=== PATIENT | female | born 1935 | race Caucasian/White ===

== ENCOUNTER 2018-12-15 23:16 | Emergency (ER) | payer MEDICARE, MEDICAID ==
--- NOTE | 2018-12-16 00:04 | EDM.PDOC ---
ED HPI GENERAL MEDICAL PROBLEM - General Chief Complaint: Abdominal Pain Stated Complaint: LOWER ABDOMEN PAIN [id number] Time Seen by Provider: 12/15/18 23:25 - History of Present Illness INITIAL COMMENTS - FREE TEXT/NARRATIVE: ED with friend, woke around 10pm with burning pain to RLQ. Improving now. No fever. No nausea or vomiting. last BM this am. Hx remote appendectomy and lola. No known hx of diverticulitis. Friend reports minimal encounter with health care. Patient just re establishing care. Follow up appointment scheduled for Friday. Right Lower Abdomen Pain Score (Numeric/FACES): 4 - Related Data Allergies Allergy/AdvReac Type Severity Reaction Status Date / Time No Known Allergies Allergy Verified 12/15/18 23:25 Home Meds: Home Meds Sertraline HCl 1.25 ml PO DAILY 12/15/18 [History] Past Medical History - Past Surgical History GI Surgical History: Reports: Appendectomy, Cholecystectomy Social & Family History - Tobacco Use Smoking Status *Q: Never Smoker Second Hand Smoke Exposure: No - Recreational Drug Use Recreational Drug Use: No ED ROS GENERAL - Review of Systems Review Of Systems: See Below Constitutional: Reports: Decreased Appetite. Denies: Fever, Chills, Malaise HEENT: Reports: No Symptoms, Glasses Respiratory: Reports: No Symptoms Cardiovascular: Reports: No Symptoms Endocrine: Reports: No Symptoms GI/Abdominal: Reports: Abdominal Pain (RLQ burning at onset resolved oin ED. ) : Reports: No Symptoms Musculoskeletal: Reports: No Symptoms Skin: Reports: Wound (abrasion right abdomen notes when whe is stressed rubs area at night. ) Neurological: Reports: No Symptoms Psychiatric: Reports: Anxiety (Reports stress from spouses failing health, confusion, having to live alone ) ED EXAM, GI/ABD - Physical Exam Exam: See Below Exam Limited By: No Limitations General Appearance: Alert, No Apparent Distress, Anxious Eyes: Bilateral: EOMI Ears: Normal External Exam Nose: Normal Inspection Throat/Mouth: Normal Inspection Head: Atraumatic, Normocephalic Neck: Normal Inspection Respiratory/Chest: No Respiratory Distress, Lungs Clear, Normal Breath Sounds Cardiovascular: Normal Peripheral Pulses, Regular Rate, Rhythm GI/Abdominal Exam: Normal Bowel Sounds, Soft, No Mass. No: Distended, Guarding , Rebound Back Exam: Normal Inspection Neurological: Alert, Oriented, Normal Cognition Psychiatric: Anxious Skin Exam: Warm, Dry, Wound/Incision (3x1cm abrasion right mid lower abdomen no erythema or warmth. ) Course - Vital Signs Last Recorded V/S: Last Vital Signs Temp 97.4 F 12/15/18 23:20 Pulse 76 12/15/18 23:20 Resp 18 12/15/18 23:20 BP 166/76 H 12/15/18 23:20 Pulse Ox 93 L 12/15/18 23:20 - Orders/Labs/Meds Orders: Active Orders 24 hr Category Date Time Status Abdomen 1V Upright [CR] Urgent Exams 12/16/18 00:01 Taken UA W/MICROSCOPIC [URIN] Stat Lab 12/16/18 00:34 Results Labs: Laboratory Tests 12/16/18 12/16/18 12/16/18 Range/Units 00:16 00:16 00:34 WBC 7.7 (5.0-10.0) 10^3/uL RBC 4.67 (4.2-5.4) 10^6/uL Hgb 14.2 (12.0-16.0) g/dL Hct 43.3 (37.0-47.0) % MCV 92.7 (80-100) fL MCH 30.4 (27.0-34.0) pg MCHC 32.8 L (33.0-35.0) g/dL Plt Count 193 (150-450) 10^3/uL Neut % (Auto) 55.6 (42.2-75.2) % Lymph % (Auto) 27.7 (20.5-50.1) % [place] % (Auto) 12.2 H (2-8) % Eos % (Auto) 4.0 H (1.0-3.0) % Baso % (Auto) 0.5 (0.0-1.0) % Sodium 131 L (135-145) mmol/L Potassium 4.1 (3.6-5.0) mmol/L Chloride 95 L (101-111) mmol/L Carbon Dioxide 25.0 (21.0-31.0) mmol/L Anion Gap 15.1 BUN 19 H (7-18) mg/dL Creatinine 0.6 (0.6-1.3) mg/dL Est Cr Clr Drug Dosing 58.49 mL/min Estimated GFR (MDRD) > 60 BUN/Creatinine Ratio 31.66 Glucose 99 (74-105) mg/dL Calcium 9.3 (8.4-10.2) mg/dl Total Bilirubin 0.7 (0.2-1.0) mg/dL AST 20 (10-42) IU/L ALT 13 (10-60) IU/L Alkaline Phosphatase 60 (42-121) IU/L Total Protein 7.1 (6.7-8.2) g/dl Albumin 3.6 (3.2-5.5) g/dl Globulin 3.5 Albumin/Globulin Ratio 1.03 Amylase 57 (28-100) U/L Lipase 42 (22-51) U/L Urine Color Yellow (YELLOW) Urine Appearance Slightly cloudy (CLEAR) Urine pH 7.0 (5.0-9.0) Ur Specific [place] 1.015 (1.005-1.030) Urine Protein Negative (NEGATIVE) Urine Glucose (UA) Negative (NEGATIVE) Urine Ketones Negative (NEGATIVE) Urine Occult Blood Trace-intact H (NEGATIVE) Urine Nitrite Negative (NEGATIVE) Urine Bilirubin Negative (NEGATIVE) Urine Urobilinogen 0.2 (0.2-1.0) mg/dL Ur Leukocyte Esterase Trace H (NEGATIVE) - Radiology Interpretation Free Text/Narrative:: Name: RANDY MERCER Age: 83Years F Date: 12/16/2018 SSN: -- : [id number] Study: XR ABDOMEN 1 VIEW Requesting Physician: MONICA ARREAGA Images: 1 Addl Studies: Provided Clinical History: Contrast: Contrast Medium: Contrast Amount: Contrast Method: CONFIDENTIALITY STATEMENT This report is intended only for use by the referring physician, and only in accordance with law. If you received this in error, call [phone]. Page 1 of 1 EXAM: XR Abdomen, 1 View EXAM DATE/TIME: 12/16/2018 12:07 AM CLINICAL HISTORY: 83 years old, female; Pain; Abdominal pain; Acute; Patient HX: Abd pain TECHNIQUE: Frontal supine view of the abdomen/pelvis. COMPARISON: No relevant prior studies available. FINDINGS: Lower thorax: Pulmonary fibrotic changes in the lung bases. Gastrointestinal tract: Unremarkable. No bowel dilation. Organs: Unremarkable. Bones/joints: Unremarkable for age. IMPRESSION: No acute findings. Thank you for allowing us to participate in the care of your patient. Dictated and Authenticated by: Anup Gamble MD 12/16/2018 12:37 AM Central Time ([place] & [place]) Departure - Departure Time of Disposition: 00:47 Disposition: Home, Self-Care 01 Condition: Good Clinical Impression: Abdominal pain Qualifiers: Abdominal location: right lower quadrant Qualified Code(s): R10.31 - Right lower quadrant pain - Discharge Information *PRESCRIPTION DRUG MONITORING PROGRAM REVIEWED*: Not Applicable *COPY OF PRESCRIPTION DRUG MONITORING REPORT IN PATIENT [place]IR[place]: Not Applicable Instructions: Abdominal Pain, Adult, [id number] Forms: ED Department Discharge Additional Instructions: increase liquids, fruit and fiber in diet miralax one capful daily as needed follow up with primary care as previously scheduled - My Orders Last 24 Hours: My Active Orders 12/16/18 00:01 Abdomen 1V Upright [CR] Urgent 12/16/18 00:34 UA W/MICROSCOPIC [URIN] Stat - Assessment/Plan Last 24 Hours: My Active Orders 12/16/18 00:01 Abdomen 1V Upright [CR] Urgent 12/16/18 00:34 UA W/MICROSCOPIC [URIN] Stat
[2018-12-16 00:42] LABS: ANION GAP 15.1; CHLORIDE,CL 95 mmol/L (101-111); SODIUM,NA 131 mmol/L (135-145)
== END 2018-12-16 00:58 | disposition home or self-care (01) ==
LOC: DL.ED 23:16
DX: S30.811A Abrasion of abdominal wall, initial encounter (principal); X58.XXXA Exposure to other specified factors, initial encounter; Z90.49 Acquired absence of other specified parts of digestive tract
CPT/HCPCS: 36415; 74018; 80053; 81001; 82150; 82272; 83690; 85025; 99284